=== PATIENT | female | born 1950 | race Caucasian/White ===

== ENCOUNTER 2019-07-01 20:17 | Emergency (ER) | payer MEDICARE ==
[~2019-07-01] VITALS: Ht 152.4 cm; Wt 35.9 kg
--- NOTE | 2019-07-01 20:20 | PHYS DOC ---
Adult General Chief Complaint Chief Complaint: >>>" I fell... this Lt. hip and leg still hurt...".." I was standing up... putting on m pants...... and my left leg got caught and I fell... Hard on this left hip and leg..." .." I was in a hurry..." HPI HPI Patient is a 69 year old female who presents with above hx and complaints of falling when she was attempting to put her pants on in a hurry. Patient states is too painful currently but bear weight. Distal neurovascular appears to be equal to right leg. Pain is localized in hip and along the Sartorius and Pectineal muscle groups. Does have pain on loading of Lt. Hip and with passive range of motion. Patient is able to do straight leg lift with pain. Patient denies other injury with the fall. Patient normally follows with Dr. Andrade. No history immunosuppression and history of travel. No history of previous fractures. Review of Systems Review of Systems Constitutional: Denies fever or chills [] Eyes: Denies change in visual acuity, redness, or eye pain [] HENT: Denies nasal congestion or sore throat [] Respiratory: Denies cough or shortness of breath [] Cardiovascular: No additional information not addressed in HPI [] GI: Denies abdominal pain, nausea, vomiting, bloody stools or diarrhea [] : Denies dysuria or hematuria [] Musculoskeletal: Complains of left hip,femur and muscle pain Integument: Denies rash or skin lesions [] Neurologic: Denies headache, focal weakness or sensory changes [] Endocrine: Denies polyuria or polydipsia [] All other systems were reviewed and found to be within normal limits, except as documented in this note. Family History Family History Noncontributory to presentation Current Medications Current Medications See nursing for home meds Allergies Allergies No known drug allergies Physical Exam Physical Exam Constitutional:in acute distress, non-toxic appearance. [] HENT: Normocephalic, atraumatic, bilateral external ears normal, oropharynx moist, no oral exudates, nose normal. [] Eyes: PERRLA, EOMI, conjunctiva normal, no discharge. Glasses Neck: Normal range of motion, no tenderness, supple, no stridor. [] Cardiovascular:Heart rate regular rhythm, no murmur [] Lungs & Thorax: Bilateral breath sounds equal at apex on auscultation [] Abdomen: Bowel sounds normal, soft, no tenderness, no masses, no pulsatile masses. [] Skin: Warm, dry, no erythema, no rash. [] Back: No tenderness, no CVA tenderness. [] Extremities: No tenderness, no cyanosis, no clubbing, ROM intact, no edema. E xcept findings in left hip and leg as per history of present illness Neurologic: Alert and oriented X 3, normal motor function, normal sensory function, no focal deficits noted. [] Psychologic: Affect anxious,, judgement normal, mood normal. [] EKG EKG My interpretation of EKG shows a` sinus rhythm at 96 bpm. No findings of acute STEMI with contralateral changes.[] Radiology/Procedures Radiology/Procedures [address] [place] [id number] IMAGING REPORT Signed PATIENT: CHASTITY PATRICK ACCOUNT: [id number] : 1950 LOCATION: ER AGE: 69 SEX: F EXAM STATUS: REG ER ORD. PHYSICIAN: MELLISA MARIN MD REASON: fall, severe pain pelvis and Lt hip PROCEDURE: CT LUMBAR SPINE WO CONTRAST CT pelvis without contrast: Reason for examination: Fell with severe pelvic pain and left hip pain. Helical images were obtained through the pelvis with no contrast administered. Reconstruction was performed in sagittal and coronal planes. No abnormality seen at the sacrum, iliac bones pubic bones or shift. The right proximal femur is intact. The left proximal femur however shows a intratrochanteric fracture with impaction. Hip joints are maintained. IMPRESSION: Impacted intratrochanteric fracture of the left femur. CT lumbar spine without contrast: Helical images were obtained through the lumbar spine with no contrast administered. Reconstruction was performed in sagittal and coronal planes. The vertebral bodies of the lumbar spine are intact with no evidence of acute fracture or subluxation. The posterior elements are intact. The intervertebral disc at the L1-2, L2-3 and L3-4 disc levels are maintained and there is no spinal stenosis. At the L4-5 disc level, there is moderate loss of disc height and vacuum phenomena present in with the hypertrophic facet changes bilaterally there is moderate central canal stenosis as well as bilateral lateral recess stenosis without significant neural foraminal stenosis. At the L5-S1 disc level there is severe loss of disc height and back disc phenomena and there is some posterior disc bulging and facet hypertrophy but no significant spinal stenosis is evident. No acute abnormality seen at the apex. Sacroiliac joints are maintained. IMPRESSION: Degenerative disc disease at the L4-5 and L5-S1 disc levels with moderate central canal and bilateral lateral recess stenosis at the L4-5 level but without significant stenosis at the L5-S1 disc level. Exposure: One or more of the following individualized dose reduction techniques were utilized for this examination: 1. Automated exposure control 2. Adjustment of the mA and/or kV according to patient size 3. Use of iterative reconstruction technique. Electronically signed by: Teresa Matamoros MD (07/02/2019 1:08 AM) [id number] DICTATED AND SIGNED BY: TERESA MATAMOROS MD DATE: 07/02/19 0108 CC: MELLISA MARIN MD; [place] [address] IMAGING REPORT Signed PATIENT: CHASTITY PATRICK ACCOUNT: [id number] : 1950 LOCATION: ER AGE: 69 SEX: F EXAM STATUS: REG ER ORD. PHYSICIAN: MELLISA MARIN MD REASON: Fall, left posterior and lateral hip pain, left chest pain PROCEDURE: HIP LEFT 1 VIEW WITH PELVIS Single view pelvis and single view left hip dated 07/01/2019. No comparison available. Clinical data indication: Pain after fall. FINDINGS: AP view pelvis shows normal bony alignment. No displaced fracture. No acute osseous or articular abnormality. Pelvic ring is intact. There is mild spondylotic change of the lower lumbar spine with sacralization of L5 on the left. Single view left hip shows normal bony alignment. No displaced fracture. Mild hypertrophic change of the left hip joint. No acute osseous or articular abnormality. IMPRESSION: 1. No evidence of displaced left hip fracture. If there is persistent clinical concern for occult fracture or insufficiency fracture, MRI would better evaluate. 2. Degenerative changes as described. Electronically signed by: Darrius Sharma MD (07/01/2019 9:01 PM) [id number] DICTATED AND SIGNED BY: DARRIUS SHARMA MD DATE: 07/01/192100 CC: MELLISA AMRIN MD; GEORGETTE TREADWELL ~ [][place] [address] IMAGING REPORT Signed PATIENT: CHASTITY PATRICK ACCOUNT: [id number] : 1950 LOCATION: ER AGE: 69 SEX: F EXAM STATUS: PRE ER ORD. PHYSICIAN: MELLISA MARIN MD REASON: Fall, left posterior and lateral hip pain, left chest pain PROCEDURE: CHEST AP ONLY Single view chest dated 07/01/2019. No comparison available. Clinical indication: Chest pain after fall. FINDINGS: Single upright portable exam performed. Heart and mediastinal contours within normal limits. Lungs are somewhat hyperinflated but otherwise clear. No consolidation or pleural effusion. No pneumothorax. No apparent rib fracture. IMPRESSION: No acute radiographic abnormality. Electronically signed by: Darrius Sharma MD (07/01/2019 8:59 PM) [id number] DICTATED AND SIGNED BY: DARRIUS SHARMA MD DATE: 07/01/192058 CC: MELLISA MARIN MD ~ Course & Med Decision Making Course & Med Decision Making Pertinent Labs and Imaging studies reviewed. (See chart for details). After initial x-ray showed no obvious fracture- plan to allow patient discharge home however patient was unable to ambulate due to left hip and leg pain. Initial x-ray shows no obvious displaced fracture or dislocation. CT of Pelvis and Hip ordered tonight.- Will admit for further evaluation and treatment. Ice packs as needed. Tylenol and ibuprofen for pain. May have morphine 10 mg subcutaneous up to qid a day for marked pain. The obtain PT consult and eval. Pneumatic cuffs. Incentive spirometry. Pt. admitted to Dr. Clark service if no bed s available at [facility] tonight. Orthro. Consult. Plan transfer to [facility]. Discussed presentation, testing and tx. plan with Dr. Demario DAVIS. Will see pt. tomorrow on consult - by primary. Discussed presentation, testing and tx. plan with Dr. Moussa- Will accept pt. in transfer. Impression: 1. Fall 2. Contusion, muscle and ligament strain left hip 3. Left hip fracture (Intratrochanteric Fx) [] Dragon Disclaimer Dragon Disclaimer This electronic medical record was generated, in whole or in part, using a voice recognition dictation system. Departure Departure: Disposition: HOME/RESIDENCE PRIOR TO ADM Condition: STABLE Scripts Hydrocodone/Ibuprofen (HYDROCODONE-IBUPROFEN 7.5-200 ) 1 Each Tablet 1 TAB PO PRN Q6HRS PRN for PAIN, #30 TAB 0 Refills Prov: MELLISA MARIN MD 07/01/19 [place] Disclaimer This chart was dictated in whole or in part using Voice Recognition software in a busy, high-work load, and often noisy Emergency Department environment. It may contain unintended and wholly unrecognized errors or omissions. Dragon Disclaimer This chart was dictated in whole or in part using Voice Recognition software in a busy, high-work load, and often noisy Emergency Department environment. It may contain unintended and wholly unrecognized errors or omissions. Dragon Disclaimer This chart was dictated in whole or in part using Voice Recognition software in a busy, high-work load, and often noisy Emergency Department environment. It may contain unintended and wholly unrecognized errors or omissions. Dragon Disclaimer This chart was dictated in whole or in part using Voice Recognition software in a busy, high-work load, and often noisy Emergency Department environment. It may contain unintended and wholly unrecognized errors or omissions. MELLISA MARIN MD Jul 01, 2019 20:20
--- NOTE | 2019-07-01 21:03 | RAD ---
Single view chest dated 07/01/2019. No comparison available. Clinical indication: Chest pain after fall. FINDINGS: Single upright portable exam performed. Heart and mediastinal contours within normal limits. Lungs are somewhat hyperinflated but otherwise clear. No consolidation or pleural effusion. No pneumothorax. No apparent rib fracture. IMPRESSION: No acute radiographic abnormality. Electronically signed by: Darrius Sharma MD (07/01/2019 8:59 PM) [id number]
--- NOTE | 2019-07-01 21:04 | RAD ---
Single view pelvis and single view left hip dated 07/01/2019. No comparison available. Clinical data indication: Pain after fall. FINDINGS: AP view pelvis shows normal bony alignment. No displaced fracture. No acute osseous or articular abnormality. Pelvic ring is intact. There is mild spondylotic change of the lower lumbar spine with sacralization of L5 on the left. Single view left hip shows normal bony alignment. No displaced fracture. Mild hypertrophic change of the left hip joint. No acute osseous or articular abnormality. IMPRESSION: 1. No evidence of displaced left hip fracture. If there is persistent clinical concern for occult fracture or insufficiency fracture, MRI would better evaluate. 2. Degenerative changes as described. Electronically signed by: Darrius Sharma MD (07/01/2019 9:01 PM) [id number]
[2019-07-01] MEDS: MORPHINE SULFATE 10 MG/ML SYRINGE. SQ ONE ×2 (21:30→23:09)
[2019-07-01] MEDS ORDERED: HYDR-1179 PO (22:12)
[2019-07-01] MEDS ORDERED: MORPHINE SULFATE 10 MG/ML SYRINGE. SQ PRN (22:30)
[2019-07-01] MEDS ORDERED: ONDANSETRON PF 4 MG/2 ML VIAL. IVP ONE (23:00)
[2019-07-01] MEDS ORDERED: MORPHINE SULFATE 10 MG/ML SYRINGE. SQ ONE (23:00)
[2019-07-01] MEDS ORDERED: IV RINGERS SOLUTION,LACTATED 1,000 ML IV SCH (23:00)
[2019-07-01 23:37] LABS: BASO % 0 % (0-3); EOS % 0 % (0-3); HEMATOCRIT 43.3 % (36.0-47.0); HEMOGLOBIN 14.3 g/dL (12.0-15.5); LYMPH # 0.7 x10^3/uL (1.0-4.8); LYMPH % 7 % (24-48); MEAN CORPUSCULAR HEMOGLOBIN 31 pg (25-35); MEAN CORPUSCULAR HGB CONC 33 g/dL (31-37); MEAN CORPUSCULAR VOLUME 94 fL (79-100); MONO # 0.4 x10^3/uL (0.0-1.1); MONO % 4 % (0-9); NEUT % 88 % (31-73); PLATELET COUNT 142 x10^3/uL (140-400); RED BLOOD COUNT 4.61 x10^6/uL (3.50-5.40); RED CELL DISTRIBUTION WIDTH 14.2 % (11.5-14.5); WHITE BLOOD COUNT 9.1 x10^3/uL (4.0-11.0)
[2019-07-01 23:43] LABS: CALCIUM 8.7 mg/dL (8.5-10.1); CREATININE 0.7 mg/dL (0.6-1.0); POTASSIUM 3.9 mmol/L (3.5-5.1)
[2019-07-01 23:49] LABS: ALBUMIN 3.8 g/dL (3.4-5.0); DIRECT BILIRUBIN 0.1 mg/dL (0.0-0.2); MAGNESIUM 2.1 mg/dL (1.8-2.4); TOTAL BILIRUBIN 0.4 mg/dL (0.2-1.0)
[2019-07-02] MEDS ORDERED: IV RINGERS SOLUTION,LACTATED 1,000 ML IV SCH
--- NOTE | 2019-07-02 01:11 | RAD ---
CT pelvis without contrast: Reason for examination: Fell with severe pelvic pain and left hip pain. Helical images were obtained through the pelvis with no contrast administered. Reconstruction was performed in sagittal and coronal planes. No abnormality seen at the sacrum, iliac bones pubic bones or shift. The right proximal femur is intact. The left proximal femur however shows a intratrochanteric fracture with impaction. Hip joints are maintained. IMPRESSION: Impacted intratrochanteric fracture of the left femur. CT lumbar spine without contrast: Helical images were obtained through the lumbar spine with no contrast administered. Reconstruction was performed in sagittal and coronal planes. The vertebral bodies of the lumbar spine are intact with no evidence of acute fracture or subluxation. The posterior elements are intact. The intervertebral disc at the L1-2, L2-3 and L3-4 disc levels are maintained and there is no spinal stenosis. At the L4-5 disc level, there is moderate loss of disc height and vacuum phenomena present in with the hypertrophic facet changes bilaterally there is moderate central canal stenosis as well as bilateral lateral recess stenosis without significant neural foraminal stenosis. At the L5-S1 disc level there is severe loss of disc height and back disc phenomena and there is some posterior disc bulging and facet hypertrophy but no significant spinal stenosis is evident. No acute abnormality seen at the apex. Sacroiliac joints are maintained. IMPRESSION: Degenerative disc disease at the L4-5 and L5-S1 disc levels with moderate central canal and bilateral lateral recess stenosis at the L4-5 level but without significant stenosis at the L5-S1 disc level. Exposure: One or more of the following individualized dose reduction techniques were utilized for this examination: 1. Automated exposure control 2. Adjustment of the mA and/or kV according to patient size 3. Use of iterative reconstruction technique. Electronically signed by: Teresa Garcia MD (07/02/2019 1:08 AM) [id number]
[2019-07-02] MEDS ORDERED: ONDANSETRON PF 4 MG/2 ML VIAL. IVP PRN (01:15)
[2019-07-02] MEDS ORDERED: KETOROLAC 15 MG/ML VIAL. IVP PRN (01:15)
[2019-07-02] MEDS ORDERED: MORPHINE SULFATE 10 MG/ML SYRINGE. SQ PRN (01:15)
[2019-07-02] MEDS ORDERED: ACETAMINOPHEN 325 MG TABLET PO PRN (01:15)
[2019-07-02 02:31] LABS: BARBITURATES NEG (NEG); BENZODIAZEPINES NEG (NEG); CANNABINOIDS NEG (NEG); COCAINE NEG (NEG); METHADONE NEG (NEG); OPIATES NEG (NEG); PHENCYCLIDINE NEG (NEG)
[2019-07-02 02:32] LABS: BACTERIA,URINE 0 /HPF (0-FEW); BILIRUBIN,URINE NEG (NEG); CLARITY,URINE CLEAR; COLOR,URINE YELLOW; GLUCOSE,URINE NEG (NEG); NITRITE,URINE NEG (NEG); RBC,URINE 0 /HPF (0-2); SQUAMOUS EPITHELIAL CELL,UR OCC /LPF; UROBILINOGEN,URINE 0.2 mg/dL (0.2 mg/dL)
[2019-07-02 02:33] LABS: AMPHETAMINE/METHAMPHETAMINE NEG (NEG)
[2019-07-02 02:50] VITALS: BP 146/82
[2019-07-02] MEDS ORDERED: ONDANSETRON PF 4 MG/2 ML VIAL. IVP ONE (03:00)
[2019-07-02] MEDS ORDERED: MORPHINE SULFATE 10 MG/ML SYRINGE. SQ ONE (23:05)
--- NOTE | 2019-07-03 14:16 | EKG ---
[address] [address] Test Date: 2019-07-01 Test Time: 22:02:48 Pat Name: CHASTITY PATRICK Department: Room: Gender: F [employer]er: : 1950 Requested By: MELLISA MARIN Order Number: [id number] Reading MD: Measurements Intervals [place] Rate: P: UT: QRS: QRSD: T: QT: QTc: Interpretive Statements
== END 2019-07-02 03:51 | disposition short-term general hospital (02) ==
LOC: ER 20:17
DX: S72.142A Displaced intertrochanteric fracture of left femur, initial encounter for closed fracture (principal); W18.39XA Other fall on same level, initial encounter; Y93.89 Activity, other specified; Y92.89 Other specified places as the place of occurrence of the external cause; Y99.8 Other external cause status
CPT/HCPCS: 36415; 51702; 71045; 72131; 72192; 73501; 80048; 80076; 80307; 81001; 83735; 85025; 93005; 96372; 96374; 96375; 96376; 99285; J1885; J2270; J2405; J7120

== ENCOUNTER → 2019-07-16 | Outpatient (CLI) | payer MEDICARE ==
[2019-07-02 02:50] VITALS: BP 146/82
[~2019-07-16] MED LIST: HYDR-1179 PO
--- NOTE | 2019-07-16 09:43 | RAD ---
Examination: HIP LEFT 2V WITH PELVIS History: Fracture follow-up Comparison/Correlation: 07/01/2019 pelvis with left hip x-ray exam Findings: Pelvis and left hip x-ray exam was performed. Frontal views of the pelvis, frontal view left hip, frog-leg lateral view of the left hip were provided. Left femoral intramedullary michelle is present. Compression screw terminating along the left femoral head is noted. Smaller screw more distally involving the intramedullary michelle is present. Godwin are noted in the left lateral hip and proximal thigh region. Left hip joint space is normal. Joint spaces unremarkable. No displaced fracture or bone destruction. There is disc space narrowing of the lumbar spine noted. Impression: Postoperative findings of the proximal left femur. No suspicious findings.. Electronically signed by: Rafal Bryan MD (07/16/2019 9:40 AM) [id number]
== END ==
LOC: DXRAD 09:14
PROVIDERS: ATTEND Physician Assistant
DX: S72.002D Fracture of unspecified part of neck of left femur, subsequent encounter for closed fracture with routine healing (principal); X58.XXXD Exposure to other specified factors, subsequent encounter
CPT/HCPCS: 73502

== ENCOUNTER → 2019-08-13 | Outpatient (CLI) | payer MEDICARE ==
--- NOTE | 2019-08-13 09:22 | RAD ---
INDICATION: Fracture follow-up COMPARISON: July 16, 2019 IMPRESSION: 2 views of pelvis and left hip obtained. Degenerative changes of partially visualized lower lumbar spine with curvature of the spine. Degenerative changes right hip. Intramedullary michelle and screw placement left proximal femur traversing previously identified fracture line with alignment well maintained. Electronically signed by: Ashish Barber MD (08/13/2019 9:20 AM) [id number]
== END ==
LOC: RAD 08:32
PROVIDERS: ATTEND Physician Assistant
DX: S72.002A Fracture of unspecified part of neck of left femur, initial encounter for closed fracture (principal); M47.816 Spondylosis without myelopathy or radiculopathy, lumbar region; X58.XXXA Exposure to other specified factors, initial encounter; Y93.89 Activity, other specified; Y92.89 Other specified places as the place of occurrence of the external cause; Y99.8 Other external cause status
CPT/HCPCS: 73502

== ENCOUNTER → 2019-09-24 | Outpatient (CLI) | payer MEDICARE ==
--- NOTE | 2019-09-24 08:57 | RAD ---
PROCEDURE: HIP LEFT 2V WITH PELVIS STUDY DATE: 09/24/2019 CLINICAL INDICATION / HISTORY: Reason: FOLLOW UP HIP FRACTURE / Spl. Instructions: / History: . TECHNIQUE:AP pelvis and AP and frog-leg lateral views of the left hip were obtained COMPARISON: Pelvis and left hip x-rays of 08/13/2019 and 07/16/2019 FINDINGS: The osseous structures are normally mineralized. There is normal bony alignment present with the femoral heads well-seated within the acetabuli. Left hip dynamic fixation screw and intramedullary michelle is present through the femoral neck and proximal shaft and the fracture line shows evidence of a healing response. There is minimal residual irregularity at the junction between the femoral shaft and femoral neck. The overlying soft tissues are grossly unremarkable. IMPRESSION: Continued healing of the internally fixated left hip intratrochanteric fracture with no apparent complication shown. Electronically signed by: Franklin Marshall MD (09/24/2019 8:55 AM) [id number]
== END | disposition home or self-care (01) ==
LOC: DXRAD 08:31
PROVIDERS: ATTEND Physician Assistant
DX: S72.142D Displaced intertrochanteric fracture of left femur, subsequent encounter for closed fracture with routine healing (principal); X58.XXXD Exposure to other specified factors, subsequent encounter
CPT/HCPCS: 73502

== ENCOUNTER → 2019-12-11 | Outpatient (CLI) | payer MEDICARE ==
--- NOTE | 2019-12-15 10:48 | RAD ---
DATE: 12/11/2019 2:30 PM EXAM: MAMMO HOLGER SCREENING BILATERAL HISTORY: Screening COMPARISON: 03/05/2018 Bilateral CC and MLO views of the breasts were performed. Bilateral breast tomosynthesis was performed in CC and MLO projections. This study was interpreted with the benefit of Computerized Aided Detection (CAD). FINDINGS: Breast Density: DENSE The breast Parenchyma is dense, which could reduce the sensitivity of mammography. Breast parenchyma level density D. No suspicious masses, microcalcifications or architectural distortion is present to suggest malignancy in either breast. The visualized axillae are unremarkable. IMPRESSION: No mammographic evidence of malignancy. BI-RADS CATEGORY: 1 NEGATIVE RECOMMENDED FOLLOW-UP: 12M 12 MONTH FOLLOW-UP Annual screening mammography is recommended, unless clinically indicated sooner based on symptoms or change in physical exam. PQRS compliance statement: Patient information was entered into a reminder system with a target due date for the next mammogram. Mammography is a sensitive method for finding small breast cancers, but it does not detect them all and is not a substitute for careful clinical examination. A negative mammogram does not negate a clinically suspicious finding and should not result in delay in biopsying a clinically suspicious abnormality. "Our facility is accredited by the [employer] Mammography Program."
== END | disposition home or self-care (01) ==
LOC: MAMMO 14:19
PROVIDERS: ATTEND Family Medicine
DX: Z12.31 Encounter for screening mammogram for malignant neoplasm of breast (principal)
CPT/HCPCS: 77063; 77067